=== PATIENT | female | born 1955 | race African-American/Black ===

== ENCOUNTER 2016-09-18 22:10 | Emergency (ER) | payer MEDICARE, MEDICAID ==
[~2016-09-18] VITALS: Ht 170.2 cm; Wt 72.0 kg
[~2016-09-18 22:10] MED LIST: ASPI-1159 PO; ASPI-1160 PO; ATOR20TA PO; CLOP75TA15 PO; COR3 PO; LOSA50TA3 PO
[2016-09-19] MEDS ORDERED: SODIUM CHLORIDE 0.9% 1,000 ML IV ONE (00:23)
[2016-09-19] MEDS ORDERED: KETOROLAC 30MG/ML VIAL IV STA (00:23)
[2016-09-19 00:41] LABS: HEMATOCRIT. 40.4 % (36.0-48.0); HEMOGLOBIN. 13.4 g/dL (12.0-16.0); MEAN CORPUSCULAR HEMOGLOBIN 26.5 pg (28.0-32.0); MEAN CORPUSCULAR VOLUME 79.9 fL (81.0-99.0); MEAN PLATELET VOLUME 8.9 fl (7.4-10.4); PLATELET 243 x1000/uL (130-400); RED BLOOD CELL COUNT 5.06 mill/uL (4.2-5.4); RED CELL DISTRIBUTION WIDTH 18.4 % (11.6-14.6)
[2016-09-19 00:54] LABS: INR 1.3; PROTHROMBIN TIME 13.9 sec
[2016-09-19 00:54] LABS: CLARITY URINE TURBID (CLEAR); COLOR URINE ORANGE (YELLOW); GLUCOSE URINE NEGATIVE (NEGATIVE); KETONES URINE NEGATIVE (NEGATIVE); LEUKOCYTE ESTERASE URINE 2+ (NEGATIVE); NITRITE URINE POSITIVE (NEGATIVE); OCCULT BLOOD URINE 1+ (NEGATIVE); PROTEIN URINE 3+ (NEGATIVE); SPECIFIC GRAVITY URINE 1.035 (1.005-1.030)
[2016-09-19 01:09] LABS: CARBON DIOXIDE 28 mEq/L (21-32); CHLORIDE 102 mEq/L (98-107)
[2016-09-19 01:16] LABS: PLATELET ESTIMATE NORMAL
[2016-09-19 01:31] LABS: *AMPHETAMINES SCREEN URINE NEGATIVE (NEGATIVE); *BARBITURATES SCREEN URINE NEGATIVE (NEGATIVE); *BENZODIAZEPINES SCREEN URINE NEGATIVE (NEGATIVE); *COCAINE SCREEN URINE NEGATIVE (NEGATIVE); CANNABINOID URINE SCREEN PRESUMTIVE POSITIVE (NEGATIVE); METHADONE URINE SCREEN NEGATIVE (NEGATIVE); OPIATES URINE SCREEN NEGATIVE (NEGATIVE); PHENCYCLIDINE URINE SCREEN NEGATIVE (NEGATIVE)
[2016-09-19] MEDS ORDERED: FAMOTIDINE 20MG TABLET PO ONE (03:00)
[2016-09-19] MEDS ORDERED: FAMOTIDINE 20MG TABLET PO NR (03:15)
[2016-09-19] MEDS ORDERED: ONDANSETRON HCL 4MG/2ML VIAL IV ONE (03:30)
[2016-09-19] MEDS ORDERED: ACETAMINOPHEN WITH CODEINE 300/30MG TABLET PO ONE (05:15)
[2016-09-19 05:17] VITALS: BP 121/75
== END 2016-09-19 05:40 | disposition home or self-care (01) ==
LOC: ER 22:10
DX: R10.30 Lower abdominal pain, unspecified (principal); R19.7 Diarrhea, unspecified; J44.9 Chronic obstructive pulmonary disease, unspecified; I10 Essential (primary) hypertension; J45.909 Unspecified asthma, uncomplicated; I51.9 Heart disease, unspecified; Z79.82 Long term (current) use of aspirin
CPT/HCPCS: 36415; 80053; 80305; 81001; 81025; 83690; 85025; 85610; 96374; 96375; 99284; J1885; J2405; J7030

== ENCOUNTER 2017-01-27 02:14 | Inpatient (IN) | payer MEDICARE, MEDICAID ==
[~2017-01-27] VITALS: Ht 170.2 cm; Wt 66.4 kg
[2017-01-27] VITALS (9 sets, daily range): BP systolic 110–154; BP diastolic 65–88
[2017-01-27] MEDS ORDERED: ASPIRIN 81MG TABLET PO STA (02:20)
[2017-01-27] MEDS ORDERED: ONDANSETRON HCL 4MG/2ML VIAL IV STA (02:20)
[2017-01-27] MEDS ORDERED: FUROSEMIDE 40MG/4ML VIAL IV STA (02:20)
[2017-01-27] MEDS ORDERED: METHYLPREDNISOLONE SOD SUCC 125 MG/2 ML VIAL IV STA (02:20)
[2017-01-27] MEDS ORDERED: IPRATROPIUM/ALBUTEROL 0.5-3(2.5)MG/3ML NEB HHN ONE (02:30)
[2017-01-27] MEDS ORDERED: LEVOFLOXACIN 750MG PREMIX 150 ML IV ONE (02:30)
[2017-01-27] MEDS ORDERED: MAGNESIUM 2 G PREMIX 50 ML IV ONE (02:30)
[2017-01-27 03:19] LABS: BASOPHILS % 0.6 % (0.0-2.0); EOSINOPHILS % 0.8 % (0.0-5.0); HEMATOCRIT. 31.3 % (36.0-48.0); LYMPHOCYTES % 33.1 % (20.0-50.0); MEAN CORPUSCULAR HEMOGLOBIN 27.2 pg (28.0-32.0); MEAN CORPUSCULAR VOLUME 85.4 fL (81.0-99.0); MEAN PLATELET VOLUME 9.3 fl (7.4-10.4); MONOCYTES % 6.5 % (2.0-8.0); PLATELET 303 x1000/uL (130-400); RED BLOOD CELL COUNT 3.67 mill/uL (4.2-5.4); RED CELL DISTRIBUTION WIDTH 23.3 % (11.6-14.6)
[2017-01-27 03:31] LABS: D-DIMER 0.75 mg/L FEU (<0.50); INR 1.2; PROTHROMBIN TIME 12.8 sec (9.4-11.6)
[2017-01-27 03:39] LABS: CARBON DIOXIDE 21 mEq/L (21-32); CHLORIDE 110 mEq/L (98-107); CREATINE KINASE 102 IU/L (26-192); TROPONIN I < 0.02 ng/mL (0.00-0.04)
[2017-01-27 03:41] LABS: BG BASE EXCESS -1.5 mmol/L (-2.0-2.0); BG BILEVEL POS AIRWAY PRESSURE 15/5; BG CARBOXYHEMOGLOBIN 0.3 % (0.5-1.5); BG DEOXYHEMOGLOBIN 0.7 % (0.0-5.0); BG FRACTION INSPIRED OXYGEN 50; BG HCO3 ACT 24.2 mmol/L (22.0-26.0); BG METHEMOGLOBIN 0.4 % (0.0-1.5); BG OXYGEN SATURATION 99.3 % (92.0-98.5); BG OXYHEMOGLOBIN 98.6 % (94.0-97.0); BG PCO2 44.8 mmHg (35.0-45.0); BG PH 7.351 (7.350-7.450); BG PO2 210.8 mmHg (75.0-100.0); BG SAMPLE SITE RIGHT RADIAL; BG TOTAL HEMOGLOBIN 11.1 g/dL (12.0-18.0); BG VENT MODE MASK - BIPAP
[2017-01-27] MEDS ORDERED: CLONIDINE 0.1MG TABLET PO PRN (08:15)
[2017-01-27] MEDS ORDERED: DIPHENHYDRAMINE 50MG/ML VIAL IV PRN (08:15)
[2017-01-27] MEDS ORDERED: GUAIFENESIN 200MG/10ML SUGAR FREE UDC PO PRN (08:15)
[2017-01-27] MEDS ORDERED: MAGNESIUM/ALUMINUM HYDROXIDE/SIMETHICONE 30ML UDC PO PRN (08:15)
[2017-01-27] MEDS ORDERED: LEVOFLOXACIN 500MG PREMIX 100 ML IV SCH (08:15)
[2017-01-27] MEDS ORDERED: IPRATROPIUM/ALBUTEROL 0.5-3(2.5)MG/3ML NEB INH PRN (08:15)
[2017-01-27] MEDS ORDERED: MORPHINE SULFATE 10 MG/ML CPJ IV PRN (08:15)
[2017-01-27] MEDS ORDERED: TRAMADOL 50MG TABLET PO PRN (08:15)
[2017-01-27] MEDS ORDERED: ONDANSETRON HCL 4MG/2ML VIAL IV PRN (08:15)
[2017-01-27] MEDS ORDERED: DEXTROSE 50% WATER 50ML SYRINGE IV PRN (08:15)
[2017-01-27] MEDS ORDERED: NITROGLYCERIN 0.4MG TABLET SL SL PRN (08:15)
[2017-01-27] MEDS ORDERED: LORAZEPAM 2MG/ML CPJ IV PRN (08:15)
[2017-01-27] MEDS: INSULIN LISPRO 100 UNITS/ML SUBCUT SCH ×4 (08:18→20:24)
[2017-01-27] MEDS ORDERED: LORAZEPAM 0.5MG TABLET PO PRN (08:30)
[2017-01-27] MEDS: LISINOPRIL 20MG TABLET PO SCH ×2 (08:49→20:23)
[2017-01-27] MEDS: ASPIRIN 325MG EC TABLET PO SCH (08:49)
[2017-01-27] MEDS: BLOOD SUGAR DIAGNOSTIC STRIP TEST SCH ×4 (08:49→20:23)
[2017-01-27] MEDS: GUAIFENESIN 600MG ER TABLET PO SCH ×2 (08:49→20:23)
[2017-01-27] MEDS: ASCORBIC ACID 500 MG TABLET PO SCH ×2 (08:49→20:23)
[2017-01-27] MEDS: ENOXAPARIN 40MG/0.4ML SYR SUBCUT SCH (08:49)
[2017-01-27] MEDS ORDERED: DOCUSATE SODIUM 100MG CAPSULE PO PRN (09:00)
[2017-01-27] MEDS ORDERED: CLOPIDOGREL 75MG TABLET PO SCH (09:00)
[2017-01-27] MEDS ORDERED: FUROSEMIDE 100MG/10ML VIAL IVP SCH (09:00)
[2017-01-27] MEDS ORDERED: NA PHOS,M-B/NA PHOS,DI-BA ENEMA 118ML PR PRN (09:00)
[2017-01-27] MEDS: CEFTRIAXONE 1 G PREMIX 50 ML IV SCH (09:58)
[2017-01-27 11:28] LABS: GLUCOSE URINE NEGATIVE (NEGATIVE); KETONES URINE NEGATIVE (NEGATIVE); LEUKOCYTE ESTERASE URINE NEGATIVE (NEGATIVE); NITRITE URINE NEGATIVE (NEGATIVE); OCCULT BLOOD URINE NEGATIVE (NEGATIVE); PH URINE 5.5 (4.5-8.0); PROTEIN URINE NEGATIVE (NEGATIVE); SPECIFIC GRAVITY URINE 1.004 (1.005-1.030); UROBILINOGEN URINE 0.2 E.U./dL (0.2-1.0)
[2017-01-27 11:30] LABS: CLARITY URINE CLEAR (CLEAR); COLOR URINE PALE YELLOW (YELLOW)
[2017-01-27] MEDS: BUDESONIDE 0.5MG/2ML NEB HHN SCH ×2 (13:02→21:03)
[2017-01-27] MEDS: IPRATROPIUM/ALBUTEROL 0.5-3(2.5)MG/3ML NEB HHN SCH ×2 (13:02→21:03)
[2017-01-27 13:10] LABS: *AMPHETAMINES SCREEN URINE NEGATIVE (NEGATIVE); *BARBITURATES SCREEN URINE NEGATIVE (NEGATIVE); *BENZODIAZEPINES SCREEN URINE NEGATIVE (NEGATIVE); *COCAINE SCREEN URINE NEGATIVE (NEGATIVE); CANNABINOID URINE SCREEN NEGATIVE (NEGATIVE); METHADONE URINE SCREEN NEGATIVE (NEGATIVE); OPIATES URINE SCREEN NEGATIVE (NEGATIVE); PHENCYCLIDINE URINE SCREEN NEGATIVE (NEGATIVE)
[2017-01-27] MEDS ORDERED: TICA90TA PO (16:19)
[2017-01-27] MEDS ORDERED: OMEP20CA10 PO (16:20)
[2017-01-27 16:54] LABS: CREATINE KINASE 96 IU/L (26-192); CREATINE KINASE MB FRACTION 1.1 ng/mL (0.5-3.6); TROPONIN I < 0.02 ng/mL (0.00-0.04)
[2017-01-27] MEDS ORDERED: COR25 PO (17:11)
[2017-01-27] MEDS: OMEPRAZOLE 20MG CAPSULE EXTENDED RELEASE PO SCH (17:49)
[2017-01-27] MEDS: SPIRONOLACTONE 25MG TABLET PO SCH (17:49)
[2017-01-27] MEDS: FUROSEMIDE 40MG/4ML VIAL IVP SCH (20:23)
[2017-01-27] MEDS: ATORVASTATIN CALCIUM 20MG TABLET PO SCH (20:23)
[2017-01-27] MEDS ORDERED: ZOLPIDEM TARTRATE 5MG TABLET PO PRN (21:00)
[2017-01-28] VITALS (13 sets, daily range): BP systolic 107–148; BP diastolic 52–97
[2017-01-28] MEDS: ACETAMINOPHEN 325MG TABLET PO PRN (00:17)
[2017-01-28 00:33] LABS: CREATINE KINASE 89 IU/L (26-192); CREATINE KINASE MB FRACTION 0.7 ng/mL (0.5-3.6); TROPONIN I < 0.02 ng/mL (0.00-0.04)
[2017-01-28] MEDS: IPRATROPIUM/ALBUTEROL 0.5-3(2.5)MG/3ML NEB HHN SCH ×4 (00:47→21:11)
[2017-01-28] MEDS ORDERED: LEVOFLOXACIN 250MG PREMIX 50 ML IV SCH (04:30)
[2017-01-28] MEDS ORDERED: CARVEDILOL 3.125 MG TABLET PO SCH (06:00)
[2017-01-28] MEDS: OMEPRAZOLE 20MG CAPSULE EXTENDED RELEASE PO SCH (06:05)
[2017-01-28] MEDS: BLOOD SUGAR DIAGNOSTIC STRIP TEST SCH ×4 (06:05→20:14)
[2017-01-28] MEDS: SPIRONOLACTONE 25MG TABLET PO SCH ×2 (06:05→17:11)
[2017-01-28] MEDS: INSULIN LISPRO 100 UNITS/ML SUBCUT SCH ×4 (06:27→20:14)
[2017-01-28 07:05] LABS: BASOPHILS % 0.4 % (0.0-2.0); EOSINOPHILS % 0.6 % (0.0-5.0); HEMATOCRIT. 30.9 % (36.0-48.0); HEMOGLOBIN. 10.1 g/dL (12.0-16.0); LYMPHOCYTES % 33.8 % (20.0-50.0); MEAN CORPUSCULAR HEMOGLOBIN 27.6 pg (28.0-32.0); MEAN CORPUSCULAR VOLUME 84.6 fL (81.0-99.0); MEAN PLATELET VOLUME 9.3 fl (7.4-10.4); MONOCYTES % 10.1 % (2.0-8.0); NEUTROPHILS % 55.1 % (40.0-76.0); PLATELET 272 x1000/uL (130-400); RED BLOOD CELL COUNT 3.65 mill/uL (4.2-5.4); RED CELL DISTRIBUTION WIDTH 23.1 % (11.6-14.6)
[2017-01-28 07:43] LABS: CHLORIDE 104 mEq/L (98-107)
[2017-01-28 07:49] LABS: CARBON DIOXIDE 30 mEq/L (21-32)
[2017-01-28] MEDS: FUROSEMIDE 40MG/4ML VIAL IVP SCH (08:09)
[2017-01-28] MEDS: ASCORBIC ACID 500 MG TABLET PO SCH ×2 (08:12→20:13)
[2017-01-28] MEDS: TICAGRELOR 90 MG TABLET PO SCH ×2 (08:12→17:11)
[2017-01-28] MEDS: GUAIFENESIN 600MG ER TABLET PO SCH ×2 (08:12→20:13)
[2017-01-28] MEDS: LISINOPRIL 20MG TABLET PO SCH ×2 (08:13→20:14)
[2017-01-28] MEDS: ASPIRIN 325MG EC TABLET PO SCH (08:13)
[2017-01-28] MEDS: CARVEDILOL 3.125 MG TABLET PO SCH ×2 (08:13→20:14)
[2017-01-28] MEDS: ENOXAPARIN 40MG/0.4ML SYR SUBCUT SCH (08:14)
[2017-01-28] MEDS ORDERED: CARVEDILOL 25MG TABLET PO SCH (09:00)
[2017-01-28] MEDS: CEFTRIAXONE 1 G PREMIX 50 ML IV SCH (09:01)
[2017-01-28] MEDS: BUDESONIDE 0.5MG/2ML NEB HHN SCH ×2 (10:35→21:12)
[2017-01-28] MEDS ORDERED: POTASSIUM CHLORIDE 20MEQ TABLET SR PO NR ×2 (11:00→18:00)
[2017-01-28] MEDS ORDERED: REGADENOSON 0.4 MG/5 ML IV NR (16:00)
[2017-01-28] MEDS ORDERED: TICAGRELOR 90 MG TABLET PO SCH (17:00)
[2017-01-28] MEDS: ATORVASTATIN CALCIUM 20MG TABLET PO SCH (20:13)
[2017-01-28 22:43] LABS: PLATELET ESTIMATE NORMAL
[2017-01-29] VITALS (8 sets, daily range): BP systolic 122–174; BP diastolic 68–83
[2017-01-29] MEDS: IPRATROPIUM/ALBUTEROL 0.5-3(2.5)MG/3ML NEB HHN SCH ×3 (02:15→21:08)
[2017-01-29] MEDS: BLOOD SUGAR DIAGNOSTIC STRIP TEST SCH ×4 (05:52→20:39)
[2017-01-29] MEDS: SPIRONOLACTONE 25MG TABLET PO SCH ×2 (05:53→11:00)
[2017-01-29] MEDS: INSULIN LISPRO 100 UNITS/ML SUBCUT SCH ×4 (06:28→20:39)
[2017-01-29 07:29] LABS: CARBON DIOXIDE 29 mEq/L (21-32); CHLORIDE 108 mEq/L (98-107)
[2017-01-29 07:37] LABS: TROPONIN I < 0.02 ng/mL (0.00-0.04)
[2017-01-29] MEDS ORDERED: REGADENOSON 0.4 MG/5 ML IV ONE (10:13)
[2017-01-29] MEDS: LISINOPRIL 20MG TABLET PO SCH ×2 (10:58→20:38)
[2017-01-29] MEDS: TICAGRELOR 90 MG TABLET PO SCH (10:58)
[2017-01-29] MEDS: POTASSIUM CHLORIDE 20MEQ TABLET SR PO SCH (10:59)
[2017-01-29] MEDS: ASCORBIC ACID 500 MG TABLET PO SCH ×2 (10:59→20:39)
[2017-01-29] MEDS: GUAIFENESIN 600MG ER TABLET PO SCH ×2 (10:59→20:39)
[2017-01-29] MEDS: ENOXAPARIN 40MG/0.4ML SYR SUBCUT SCH (10:59)
[2017-01-29] MEDS: FUROSEMIDE 40MG/4ML VIAL IVP SCH (11:00)
[2017-01-29] MEDS: ASPIRIN 81MG EC TABLET PO SCH (11:00)
[2017-01-29] MEDS: LEVOFLOXACIN 500MG TABLET PO SCH (11:00)
[2017-01-29] MEDS: FAMOTIDINE 20MG TABLET PO SCH ×2 (11:00→20:38)
[2017-01-29] MEDS: CARVEDILOL 3.125 MG TABLET PO SCH ×2 (11:00→20:39)
[2017-01-29] MEDS ORDERED: HEPARIN SODIUM 1,000 UNIT/1ML VIAL IV ONE (11:21)
[2017-01-29] MEDS ORDERED: SODIUM CHLORIDE 0.45% 1,000 ML IV SCH (12:00)
[2017-01-29] MEDS: BUDESONIDE 0.5MG/2ML NEB HHN SCH ×2 (13:05→21:09)
[2017-01-29] MEDS ORDERED: LIDOCAINE HCL 1% 20ML VIAL (Pyxis) INJ ONE (13:52)
[2017-01-29] MEDS ORDERED: FENTANYL CITRATE/PF 50MCG/ML 2ML VIAL ONE (13:52)
[2017-01-29] MEDS ORDERED: MIDAZOLAM HCL 2 MG/2 ML VIAL ONE (13:53)
[2017-01-29] MEDS ORDERED: IOHEXOL-300 100 ML BOTTLE ONE (13:54)
[2017-01-29] MEDS ORDERED: SODIUM CHLORIDE 0.9% 10ML VIAL ONE (13:57)
[2017-01-29] MEDS: CEFTRIAXONE 1 G PREMIX 50 ML IV SCH (14:00)
[2017-01-29] MEDS: SODIUM CHLORIDE 0.45% 1,000 ML IV SCH (15:00)
[2017-01-29] MEDS ORDERED: ATROPINE SULFATE 1MG/10ML SYR IV PRN (15:00)
[2017-01-29] MEDS ORDERED: ACETAMINOPHEN 325MG TABLET PO PRN (15:00)
[2017-01-29] MEDS: ACETAMINOPHEN 325MG TABLET PO PRN (19:22)
[2017-01-29] MEDS: ATORVASTATIN CALCIUM 20MG TABLET PO SCH (20:38)
[2017-01-30] VITALS (9 sets, daily range): BP systolic 135–166; BP diastolic 73–88
[2017-01-30] MEDS: IPRATROPIUM/ALBUTEROL 0.5-3(2.5)MG/3ML NEB HHN SCH ×2 (00:53→09:23)
[2017-01-30] MEDS: SPIRONOLACTONE 25MG TABLET PO SCH (05:54)
[2017-01-30] MEDS: BLOOD SUGAR DIAGNOSTIC STRIP TEST SCH (05:54)
[2017-01-30 06:28] LABS: BASOPHILS % 0.6 % (0.0-2.0); EOSINOPHILS % 0.6 % (0.0-5.0); HEMATOCRIT. 32.9 % (36.0-48.0); HEMOGLOBIN. 10.7 g/dL (12.0-16.0); LYMPHOCYTES % 24.1 % (20.0-50.0); MEAN CORPUSCULAR HEMOGLOBIN 27.6 pg (28.0-32.0); MEAN PLATELET VOLUME 9.1 fl (7.4-10.4); MONOCYTES % 8.8 % (2.0-8.0); NEUTROPHILS % 65.9 % (40.0-76.0); PLATELET 298 x1000/uL (130-400); RED BLOOD CELL COUNT 3.87 mill/uL (4.2-5.4); RED CELL DISTRIBUTION WIDTH 22.9 % (11.6-14.6)
[2017-01-30] MEDS: INSULIN LISPRO 100 UNITS/ML SUBCUT SCH (06:37)
[2017-01-30 06:41] LABS: CARBON DIOXIDE 26 mEq/L (21-32); CHLORIDE 107 mEq/L (98-107)
[2017-01-30] MEDS: LISINOPRIL 20MG TABLET PO SCH (08:34)
[2017-01-30] MEDS: ASCORBIC ACID 500 MG TABLET PO SCH (08:34)
[2017-01-30] MEDS: FUROSEMIDE 40MG/4ML VIAL IVP SCH (08:34)
[2017-01-30] MEDS: FAMOTIDINE 20MG TABLET PO SCH (08:34)
[2017-01-30] MEDS: GUAIFENESIN 600MG ER TABLET PO SCH (08:34)
[2017-01-30] MEDS: POTASSIUM CHLORIDE 20MEQ TABLET SR PO SCH (08:34)
[2017-01-30] MEDS: ASPIRIN 81MG EC TABLET PO SCH (08:34)
[2017-01-30] MEDS: CARVEDILOL 3.125 MG TABLET PO SCH (08:35)
[2017-01-30] MEDS: BUDESONIDE 0.5MG/2ML NEB HHN SCH (09:23)
[2017-01-30] MEDS: CEFTRIAXONE 1 G PREMIX 50 ML IV SCH (10:58)
[2017-01-30] MEDS: LEVOFLOXACIN 500MG TABLET PO SCH (11:02)
[2017-01-30] MEDS: SODIUM CHLORIDE 0.45% 1,000 ML IV SCH (11:02)
== END 2017-01-30 12:20 | disposition home or self-care (01) | DRG 286 ==
LOC: ER 02:24 → 3WST 04:42 → EDBEDREQTM 04:44 → EDBEDREQ 04:44 → ENRESERV 04:57 → ER 05:43 → UNDODISIN 01-30 16:00
PROVIDERS: ADMIT Internal Medicine; ATTEND Internal Medicine
PROC: 5A09357 Assistance with Respiratory Ventilation, Less than 24 Consecutive Hours, Continuous Positive Airway Pressure (ICD-10-PCS; principal; 2017-01-27)
PROC: 4A023N7 Measurement of Cardiac Sampling and Pressure, Left Heart, Percutaneous Approach (ICD-10-PCS; 2017-01-29)
PROC: B2181ZZ Fluoroscopy of Left Internal Mammary Bypass Graft using Low Osmolar Contrast (ICD-10-PCS; 2017-01-29)
PROC: B2131ZZ Fluoroscopy of Multiple Coronary Artery Bypass Grafts using Low Osmolar Contrast (ICD-10-PCS; 2017-01-29)
PROC: B2151ZZ Fluoroscopy of Left Heart using Low Osmolar Contrast (ICD-10-PCS; 2017-01-29)
PROC: B2111ZZ Fluoroscopy of Multiple Coronary Arteries using Low Osmolar Contrast (ICD-10-PCS; 2017-01-29)
DX: I11.0 Hypertensive heart disease with heart failure (principal); J96.00 Acute respiratory failure, unspecified whether with hypoxia or hypercapnia; E46 Unspecified protein-calorie malnutrition; E88.09 Other disorders of plasma-protein metabolism, not elsewhere classified; I25.82 Chronic total occlusion of coronary artery; E87.1 Hypo-osmolality and hyponatremia; J44.1 Chronic obstructive pulmonary disease with (acute) exacerbation; I50.33 Acute on chronic diastolic (congestive) heart failure; I25.10 Atherosclerotic heart disease of native coronary artery without angina pectoris; E87.6 Hypokalemia; E78.00 Pure hypercholesterolemia, unspecified; D64.9 Anemia, unspecified; R73.9 Hyperglycemia, unspecified; F17.210 Nicotine dependence, cigarettes, uncomplicated; I45.10 Unspecified right bundle-branch block; Z82.49 Family history of ischemic heart disease and other diseases of the circulatory system; Z83.3 Family history of diabetes mellitus; Z95.5 Presence of coronary angioplasty implant and graft; Z95.1 Presence of aortocoronary bypass graft; I25.2 Old myocardial infarction; Z79.82 Long term (current) use of aspirin; Z71.6 Tobacco abuse counseling
CPT/HCPCS: 36415; 36600; 71010; 78452; 80048; 80053; 80061; 80305; 81003; 82375; 82550; 82553; 82805; 82962; 83036; 83605; 83690; 83735; 83880; 84443; 84484; 85025; 85379; 85610; 85730; 87040; 93005; 93017; 93306; 93459; 93970; 94640; 94660; 94664; 96365; 96366; 96367; 96375; 97162; 97165; 99291; A4216; A9500; C1760; C1769; C1887; C1893; J0696; J1644; J1650; J1940; J1956; J2250; J2270; J2405; J2785; J2930; J3010; J3475; J3490; J7050; J7620; J7626; Q9967; J8499

== ENCOUNTER 2017-02-25 22:18 | Emergency (ER) | payer MEDICARE, MEDICAID ==
[~2017-02-25] VITALS: Ht 172.7 cm; Wt 72.0 kg
[2017-02-25] MEDS: IPRATROPIUM/ALBUTEROL 0.5-3(2.5)MG/3ML NEB HHN ONE (00:10)
[~2017-02-25 22:18] MED LIST changes: -ASPI-1159 PO; -CLOP75TA15 PO; +COR25 PO; -COR3 PO; -LOSA50TA3 PO; +OMEP20CA10 PO; +TICA90TA PO
[2017-02-26 01:31] LABS: HEMATOCRIT 32.2 % (36.0-48.0); HEMOGLOBIN 10.3 g/dL (12.0-16.0); MEAN CORPUSCULAR HEMOGLOBIN 26.3 pg (28.0-32.0); MEAN CORPUSCULAR VOLUME 82.3 fL (81.0-99.0); PLATELET 228 x1000/uL (130-400); RED BLOOD CELL COUNT 3.92 mill/uL (4.2-5.4); RED CELL DISTRIBUTION WIDTH 19.8 % (11.6-14.6)
[2017-02-26 01:31] LABS: CLARITY URINE TURBID (CLEAR); COLOR URINE DARK YELLOW (YELLOW); KETONES URINE TRACE (NEGATIVE); LEUKOCYTE ESTERASE URINE 3+ (NEGATIVE); NITRITE URINE NEGATIVE (NEGATIVE); OCCULT BLOOD URINE 2+ (NEGATIVE); PH URINE 5.5 (4.5-8.0); PROTEIN URINE 2+ (NEGATIVE); SPECIFIC GRAVITY URINE 1.023 (1.005-1.030)
[2017-02-26 01:42] LABS: CARBON DIOXIDE 27 mEq/L (21-32); CHLORIDE 109 mEq/L (98-107)
[2017-02-26] MEDS: PREDNISONE 20MG TABLET PO ONE (02:25)
[2017-02-26 03:00] VITALS: BP 165/79
== END 2017-02-26 03:00 | disposition home or self-care (01) ==
LOC: ER 22:34
DX: R05 Cough (principal); R06.02 Shortness of breath; R06.2 Wheezing; I11.9 Hypertensive heart disease without heart failure; I25.10 Atherosclerotic heart disease of native coronary artery without angina pectoris; J45.901 Unspecified asthma with (acute) exacerbation; Z79.82 Long term (current) use of aspirin; Z98.890 Other specified postprocedural states; Z95.5 Presence of coronary angioplasty implant and graft
CPT/HCPCS: 36415; 80053; 81001; 85027; 93005; 94640; 99285; J7512; J7620

== ENCOUNTER 2021-07-27 02:59 | Emergency (ER) | payer OTHER, MEDICAID ==
[~2021-07-27] VITALS: Ht 167.6 cm; Wt 79.0 kg
[~2021-07-27 02:59] MED LIST changes: +LOSA50TA41 PO; -OMEP20CA10 PO; +OMEP20CA14 PO
[2021-07-27] MEDS ORDERED: IPRATROPIUM BROMIDE (0.02%) 0.5MG/2.5ML NEB HHN STA (03:03)
[2021-07-27] MEDS ORDERED: MAGNESIUM 2 G PREMIX 50 ML IV STA (03:03)
[2021-07-27] MEDS ORDERED: ALBUTEROL (0.083%) 2.5MG/3ML NEB HHN STA (03:03)
[2021-07-27] MEDS ORDERED: METHYLPREDNISOLONE SOD SUCC 125 MG/2 ML VIAL IV STA (03:03)
[2021-07-27 03:18] LABS: HEMOGLOBIN 13.1 g/dL (12.0-16.0); MEAN CORPUSCULAR HEMOGLOBIN 28.6 pg (28.0-32.0); MEAN CORPUSCULAR VOLUME 87.2 fL (81.0-99.0); PLATELET 229 x1000/uL (130-400); RED BLOOD CELL COUNT 4.58 mill/uL (4.2-5.4)
[2021-07-27 03:27] LABS: CHLORIDE 109 mEq/L (98-107)
[2021-07-27] MEDS ORDERED: FUROSEMIDE 40MG/4ML VIAL IVP SCH (04:15)
[2021-07-27 09:03] VITALS: BP 118/88
== END 2021-07-27 11:03 | disposition short-term general hospital (02) ==
LOC: ER 02:59 → CANBEDREQ 05:11 → ER 11:03
DX: R06.03 Acute respiratory distress (principal); J44.1 Chronic obstructive pulmonary disease with (acute) exacerbation; F17.200 Nicotine dependence, unspecified, uncomplicated; F12.10 Cannabis abuse, uncomplicated; I10 Essential (primary) hypertension; Z98.890 Other specified postprocedural states; Z20.822 Contact with and (suspected) exposure to COVID-19
CPT/HCPCS: 36415; 71045; 80053; 83880; 84484; 85027; 87426; 94644; 96365; 96375; 99291; C9803; J1940; J2930; J3475

== ENCOUNTER 2021-09-02 18:32 | Emergency (ER) | payer OTHER, MEDICAID ==
[~2021-09-02] VITALS: Ht 167.6 cm; Wt 64.0 kg
[2021-09-03] MEDS ORDERED: MORPHINE SULFATE 4 MG/ML CPJ (NOT FOR IM USE) IV NR (00:52)
[2021-09-03] MEDS ORDERED: ACETAMINOPHEN 325MG TABLET PO NR (00:52)
[2021-09-03] MEDS ORDERED: SODIUM CHLORIDE 0.9% 500 ML IV ONE (01:00)
[2021-09-03 01:23] LABS: BASOPHILS % 0.2 % (0.0-2.0); HEMATOCRIT. 35.8 % (36.0-48.0); HEMOGLOBIN. 11.8 g/dL (12.0-16.0); LYMPHOCYTES % 7.7 % (20.0-50.0); MEAN CORPUSCULAR HEMOGLOBIN 27.7 pg (28.0-32.0); MEAN CORPUSCULAR VOLUME 84.3 fL (81.0-99.0); MEAN PLATELET VOLUME 9.1 fl (7.4-10.4); NEUTROPHILS % 79.1 % (40.0-76.0); PLATELET 236 x1000/uL (130-400); RED BLOOD CELL COUNT 4.24 mill/uL (4.2-5.4); RED CELL DISTRIBUTION WIDTH 15.3 % (11.6-14.6)
[2021-09-03 01:44] LABS: CHLORIDE 105 mEq/L (98-107)
[2021-09-03] MEDS ORDERED: PIPERACILLIN/TAZ 3.375G PREMIX 50 ML IV ONE (03:15)
[2021-09-03 04:22] VITALS: BP 103/55
== END 2021-09-03 04:33 | disposition short-term general hospital (02) ==
LOC: ER 18:32
DX: K57.30 Diverticulosis of large intestine without perforation or abscess without bleeding (principal); Z20.822 Contact with and (suspected) exposure to COVID-19; I10 Essential (primary) hypertension; I25.10 Atherosclerotic heart disease of native coronary artery without angina pectoris; J44.9 Chronic obstructive pulmonary disease, unspecified
CPT/HCPCS: 36415; 71045; 74176; 80053; 83605; 83690; 84484; 85025; 87040; 87426; 96361; 96374; 99285; C9803; J2270